=== PATIENT | female | born 1955 | race Caucasian/White ===

== ENCOUNTER → 2016-10-08 | Outpatient (CLI) | payer OTHER ==
--- NOTE | 2016-10-08 14:46 | DIAGNOSTIC IMAGING REPORT ---
PROCEDURE: US NONVASCULAR EXT LTD - RIGHT INDICATION: RT ARM MASS TECHNIQUE: Nava scale and color Doppler sonographic images of the right posterior upper arm were obtained. Contralateral side was scanned for comparison. COMPARISON: None. FINDINGS: Sonographically normal tissue. No suspicious cyst, solid mass, hypervascularity, or abnormal shadowing. IMPRESSION: 1. No evidence of discrete mass.
--- NOTE | 2016-10-08 15:03 | DIAGNOSTIC IMAGING REPORT ---
PROCEDURE: XR SHOULDER 2 OR MORE VW-LEFT INDICATION: PAIN TECHNIQUE: Three views of the left shoulder COMPARISON: None. FINDINGS: Normal mineralization. No fractures. Mild spurring at the caudal margin of the glenohumeral joint. No dislocation or separation. No suspicious soft tissue calcifications. The visible rib arcs and the underlying lung appear normal. IMPRESSION: 1. Intact left shoulder. 2. Minimal glenohumeral joint osteoarthritic change.
== END ==
LOC: US SRH 14:00
DX: R22.31 Localized swelling, mass and lump, right upper limb (principal); M19.012 Primary osteoarthritis, left shoulder; E11.9 Type 2 diabetes mellitus without complications; R53.83 Other fatigue